=== PATIENT | female | born 1965 | race Two or more races ===

== ENCOUNTER 2023-01-06 13:08 | Emergency (ER) | payer OTHER ==
[~2023-01-06] VITALS: Ht 170.2 cm; Wt 79.6 kg
[2023-01-06 14:06] VITALS: BP 138/51; PULSE 78; RESP 17; TEMP 98.2; O2SAT 98
[2023-01-06] MEDS ORDERED: AZIT-43 PO (15:30)
[2023-01-06] MEDS ORDERED: PRED20TA2 PO (15:30)
[2023-01-06] MEDS ORDERED: methylPREDNISolone SOD SUCC 125 MG/2 ML VL IM ONE (15:30)
== END 2023-01-06 16:15 | disposition home or self-care (01) ==
LOC: ER 13:08
DX: J45.909 Unspecified asthma, uncomplicated (principal)
CPT/HCPCS: 71046; 96372; 99283; J2930

== ENCOUNTER 2023-01-12 09:54 | Emergency (ER) | payer OTHER ==
[~2023-01-12] VITALS: Ht 170.2 cm; Wt 79.6 kg
[~2023-01-12 09:54] MED LIST: AZIT-43 PO; PRED20TA2 PO
[2023-01-12 10:33] VITALS: BP 147/75; PULSE 85; RESP 18; O2SAT 96
[2023-01-12] MEDS ORDERED: IBUP-1456 PO (11:13)
[2023-01-12] MEDS ORDERED: METH-1182 PO (11:13)
[2023-01-12] MEDS ORDERED: ACETAMINOPHEN 500 MG TAB PO ONE (11:15)
[2023-01-12 11:17] VITALS: TEMP 98.3
== END 2023-01-12 11:19 | disposition home or self-care (01) ==
LOC: ER 09:54
DX: S16.1XXA Strain of muscle, fascia and tendon at neck level, initial encounter (principal); S46.912A Strain of unspecified muscle, fascia and tendon at shoulder and upper arm level, left arm, initial encounter; J45.909 Unspecified asthma, uncomplicated; V43.52XA Car driver injured in collision with other type car in traffic accident, initial encounter; Y93.89 Activity, other specified; Y92.410 Unspecified street and highway as the place of occurrence of the external cause; Y99.8 Other external cause status
CPT/HCPCS: 72040

== ENCOUNTER 2024-05-09 14:09 | Emergency (ER) | payer OTHER ==
[~2024-05-09] VITALS: Ht 167.6 cm; Wt 79.4 kg
[~2024-05-09 14:09] MED LIST changes: +IBUP-1456 PO; +METH-1182 PO
[2024-05-09] MEDS: ASPirin 81 mg TAB PO ONE (15:08)
[2024-05-09 15:11] LABS: Urine Bacteria None Seen /hpf (None Seen)
--- NOTE | 2024-05-09 15:14 | DVH ---
CHEST RADIOGRAPH Indication: cp Technique: Frontal and lateral view of the chest was obtained Comparison: XY CHEST TWO VIEWS ROUTINE on DOS: 01/06/23 FINDINGS: Lines and Tubes: None Lungs: Increased interstitial prominence. Pleura: No effusion. No pneumothorax. Cardiomediastinal contours: Unremarkable Bones: Unremarkable IMPRESSION: Possible mild viral pneumonia or pulmonary vascular congestion
[2024-05-09 15:23] LABS: Basophils # (auto) 0.1 10 ^3/uL (0-0.2); Basophils % (auto) 1.3 % (0.0-2.0); Eosinophils # (auto) 0.1 10 ^3/uL (0-0.8); Eosinophils % (auto) 2.7 % (0.0-7.0); Hematocrit 41.8 % (36.0-46.0); Lymphocytes # (auto) 1.5 10 ^3/uL (0.4-5.4); Lymphocytes % (auto) 28.8 % (10.0-50.0); Mean Corpuscular Hemoglobin 30.2 pg (28.0-32.0); Mean Corpuscular Hgb Conc. 33.4 g/dL (32.0-36.0); Mean Corpuscular Volume 90.4 fL (80.0-100.0); Monocytes # (auto) 0.5 10 ^3/uL (0-1.3); Monocytes % (auto) 9.1 % (0.0-12.0); Neutrophils % (auto) 58.1 % (37.0-80.0); Nucleated Red Blood Cells % 0.1 %; Platelet Count (auto) 256 10^3/uL (140-450); Red Blood Cells 4.62 10^6/uL (4.0-5.20); Red Cell Distribution Width 12.8 % (11.8-14.3); White Blood Cell 5.2 10^3/uL (4.4-10.8)
--- NOTE | 2024-05-09 15:26 | ED.PDOC ---
HPI Comments 58-year-old female with PMHx Asthma presents with a chief complaint of chest pain x 1 hour prior to arrival. Patient states that she felt a sudden onset of chest pain that was tightening in nature, radiating to her jaw while she was vacuuming and is intermittent in timing. She she immediately sat down, drink two water bottles and the chest pain subsided however then began to have some nausea. Patient reports that the chest pain lasted roughly 30 seconds. Patient denies any current chest pain at this time. Chief Complaint: Chest Pain Time Seen by MD: 14:39 Primary Care Provider: HERMINIO Barbour Notes: Medications, Allergies Allergies: Coded Allergies: Sulfa Antibiotics (Verified Allergy, Unknown, 05/09/24) Home Meds Active Scripts Methocarbamol (Methocarbamol) 750 Mg Tab, 750 MG PO BID, #20 TAB Prov:WALI FORBES 01/12/23 Ibuprofen (Ibuprofen) 800 Mg Tab, 1 TAB PO TID, #30 TAB Prov:WALI FORBES 01/12/23 Prednisone (Prednisone) 20 Mg Tab, 20 MG PO DAILY@BREAKFAST for 5 Days, #5 MG Prov:LIYAH YAÑEZ NP 01/06/23 Azithromycin (Azithromycin) 250 Mg Tab, 250 MG PO DAILY MDD 500 for 5 Days, #6 TAB 0 Refills 2 TABLETS ORALLY ON DAY ONE, THEN 1 TABLET ORALLY DAILY FOR 4 DAYS Prov:LIYAH YAÑEZ NP 01/06/23 Information Source: Patient Mode of Arrival: Ambulatory Severity: Moderate Timing: Hours Duration: Intermittent Prehospital treatment: None Location: Chest (L) Radiation: Jaw Quality: Tightness Onset: At Rest Cardiac Risk Factors: None PE Risk Factors: None History of: None Past Medical History PAST MEDICAL HISTORY: Asthma Surgical History: Denies all surgeries EDITING INTERNSHIP History: Denies all EDITING INTER[employer]HIP Hx Family History Family History: Reviewed,noncontributory to illness Social History Smoker: Non-Smoker Alcohol: Denies ETOH Use Drugs: Denies Drug Use Lives In: Home Constitutional: denies: chills, diaphoresis, fatigue, fever, malaise, sweats, weakness, others EENTM: denies: blurred vision, double vision, ear bleeding, ear discharge, ear drainage, ear pain, ear ringing, eye pain, eye redness, hearing loss, mouth pain, mouth swelling, nasal discharge, nose bleeding, nose congestion, nose pain, photophobia, tearing, throat pain, throat swelling, voice changes, others Respiratory: denies: cough, hemoptysis, orthopnea, SOB at rest, shortness of breath, SOB with excertion, stridor, wheezing, others Cardiovascular: reports: chest pain; denies: dizzy spells, diaphoresis, Dyspnea on exertion, edema, irregular heart beat, left arm pain, lightheadedness, palpitations, PND, syncope, others Gastrointestinal: denies: abdomen distended, abdominal pain, blood streaked bowels, constipated, diarrhea, dysphagia, difficulty swallowing, hematemesis, melena, nausea, poor appetite, poor fluid intake, rectal bleeding, rectal pain, vomiting, others Genitourinary: denies: abnormal vagina bleeding, burning, dyspareunia, dysuria, flank pain, frequency, hematuria, incontinence, pain, , vagina discharge, urgency, others Neurological: denies: dizziness, fainting, headache, left sided numbness, left sided weakness, numbness, paresthesia, pre-existing deficit, right sided numbness, right sided weakness, seizure, speech problems, tingling, tremors, wea kness, others Musculoskeletal: denies: back pain, gout, joint pain, joint swelling, muscle pain, muscle stiffness, neck pain, others Integumetry: denies: bruises, change in color, change in hair/nails, dryness, l aceration, lesions, lumps, rash, wounds, others Allergic/Immunocompromised: denies: Difficulty Healing, Frequent Infections, Hives, Itching, others Hematologic/Lymphatic: denies: anemia, blood clots, easy bleeding, easy bruising, swollen glands, others Endocrine: denies: excessive hunger, excessive sweating, excessive thirst, excessive urination, flushing, intolerance to cold, intolerance to heat, unexplained weight gain, unexplained weight loss, others Psychiatric: denies: anxiety, bipolar disorder, depression, hopeless, panic disorder, schizophrenia, sleepless, suicidal, others All Other Systems: Reviewed and Negative Physical Exam General Appearance: Mild Distress, Normal HEENT: Normal ENT Inspection, Pharynx Normal, TMs Normal Neck: Full Range of Motion, Non-Tender, Normal, Normal Inspection Respiratory: Chest Non-Tender, Lungs Clear, No Accessory Muscle Use, No Respiratory Distress, Normal Breath Sounds Cardiovascular: No Edema, No JVD, No Murmur, No Gallop, Normal Peripheral Pulses, Regular Rate/Rhythm Breast Exam: Deferred Gastrointestinal: No Organomegaly, Non Tender, No Pulsatile Mass, Normal Bowel Sounds, Soft Genitalia: Deferred Pelvic: Deferred Rectal: Deferred Extremities: No calf tenderness, Normal capillary refill, Normal inspection, Normal range of motion, Non-tender, No pedal edema Musculoskeletal : Apperance: Normal Neurologic: Alert, fleet manager II-XII nml as Tested, No Motor Deficits, Normal Affect, Normal Mood, No Sensory Deficits Cerebellar Function: Normal Reflexes: Normal Skin: Dry, Normal Color, Warm Lymphatic: No Adenopathy EKG EKG #1: Pulse Rate (adult): 63 [place]: Normal Cardiac Rhythm: NSR Block: RBBB Hypertrophy: None ST: Normal EKG #2: Pulse Rate (adult): 65 [place]: Normal Cardiac Rhythm: NSR Block: None Hypertrophy: None ST: Nonsp Was a procedure done? Was a procedure done?: No CP Differential Dx Differential Diagnosis: Angina, Pulmonary Embolus Differential Diagnosis: Angina, Chest Wall Pain, Costochondritis, Gastritis, Pericarditis X-Ray, Labs, Meds, VS Vital Signs Date Time Temp Pulse Resp B/P (MAP) Pulse Ox O2 Delivery O2 Flow Rate FiO2 05/09/24 15:26 65 05/09/24 15:15 98.1 67 18 138/59 (85) 96 98.1 05/09/24 15:15 67 18 96 Room Air 05/09/24 14:56 65 05/09/24 14:19 63 05/09/24 14:11 98.6 62 18 133/60 (84) 97 Lab Test 05/09/24 15:42 05/09/24 14:30 05/09/24 14:19 Range/Units Troponin I High Sensitivity < 3 L < 3 L </=34 ng/L Urine Color Light-yellow Yellow Urine Clarity Clear Clear Urine pH 6.0 5.0-9.0 Urine Specific [place] 1.012 1.001-1.035 Urine Protein Negative Negative Urine Ketones Negative Negative Urine Blood Negative Negative /uL Urine Nitrite Negative Negative Urine Bilirubin Negative Negative Urine Urobilinogen Normal Negative mg/dL Urine Leukocyte Esterase Negative Negative /uL Urine RBC 1 0 - 4 /hpf Urine Microscopic WBC < 1 0-5 /HPF Urine Squamous Epithelial Cells Few <5 /hpf Urine Bacteria None seen None Seen /hpf Urine Glucose Normal Normal mg/dL White Blood Count 5.2 4.4-10.8 10^3/uL Red Blood Count 4.62 4.0-5.20 10^6/uL Hemoglobin 14.0 12.2-16.2 g/dL Hematocrit 41.8 36.0-46.0 % Mean Corpuscular Volume 90.4 80.0-100.0 fL Mean Corpuscular Hemoglobin 30.2 28.0-32.0 pg Mean Corpuscular Hemoglobin Concent 33.4 32.0-36.0 g/dL Red Cell Distribution Width 12.8 11.8-14.3 % Platelet Count 256 140-450 10^3/uL Mean Platelet Volume 8.1 6.9-10.8 fL Neutrophils (%) (Auto) 58.1 37.0-80.0 % Lymphocytes (%) (Auto) 28.8 10.0-50.0 % Monocytes (%) (Auto) 9.1 0.0-12.0 % Eosinophils (%) (Auto) 2.7 0.0-7.0 % Basophils (%) (Auto) 1.3 0.0-2.0 % Neutrophils # (Auto) 3.0 1.6-8.6 10 ^3/uL Lymphocytes # (Auto) 1.5 0.4-5.4 10 ^3/uL Monocytes # (Auto) 0.5 0-1.3 10 ^3/uL Eosinophils # (Auto) 0.1 0-0.8 10 ^3/uL Basophils # (Auto) 0.1 0-0.2 10 ^3/uL Nucleated Red Blood Cells 0.1 % Sodium Level 138 136-145 mmol/L Potassium Level 4.1 3.5-5.1 mmol/L Chloride Level 105 98-107 mmol/L Carbon Dioxide Level 23 20-31 mmol/L Anion Gap 10 5-15 Blood Urea Nitrogen 14 9-23 mg/dL Creatinine 0.73 0.550-1.02 mg/dL Glomerular Filtration Rate Calc 95 >90 mL/min BUN/Creatinine Ratio 19.2 10.0-20.0 Serum Glucose 100 74-106 mg/dL Calcium Level 10.2 8.7-10.4 mg/dL Current Medications Medications (Trade) Dose Ordered Sig/Glenis Route Start Time Stop Time Status Last Admin Aspirin 162 mg ONCE ONCE PO 05/09/24 14:45 05/09/24 14:46 DC 05/09/24 15:08 PATIENT: ASL BRAN (AACCT: [id number] UNIT: [id number] : 1965 LOC: ER ROOM / BED: / AGE / SEX: 58 / F ADM STATUS: REG ER SERVICE [id number] ORDERING PHYSICIAN: ROHITH SCHILLING MD PROCEDURE(s): CXR2 - CHEST TWO VIEWS ROUTINE REASON: cp ORDER NUMBER(s): [id number], ACCESSION NUMBER(s): [id number] CHEST RADIOGRAPH Indication: cp Technique: Frontal and lateral view of the chest was obtained Comparison: XY CHEST TWO VIEWS ROUTINE on DOS: 01/06/23 FINDINGS: Lines and Tubes: None Lungs: Increased interstitial prominence. Pleura: No effusion. No pneumothorax. Cardiomediastinal contours: Unremarkable Bones: Unremarkable IMPRESSION: Possible mild viral pneumonia or pulmonary vascular congestion ATED BY: GEORGE IRWIN MD DICTATED DATE/TIME: 05/09/24 150 SIGNED BY: GEORGE IRWIN MD SIGNED DATE/TIME: 05/09/24 1508 58-year-old female presents here with chest discomfort.. Patient's she was vacuuming when she began to have some squeezing like chest discomfort with radiation to her left jaw. Pain improved upon sitting. At this time EKG demonstrates evidence of right bundle branch block but is otherwise unremarkable. Troponin is negative x2. Patient is currently not having any chest pain. Blood work including a CBC and a BMP are largely unremarkable. She has been given aspirin 162 mg in the ER. Heart score is 3. I did offer her admission however the patient declined stating she prefers to follow up with her PCP Dr. Garcia. Chest x-ray demonstrates possible mild viral pneumonia or pulmonary vascular congestion. She denies being currently ill. I advised her if she has chest pain again she is to return back to the ER. Advised to follow up with Dr. Garcia in 2 days and return to the ER if symptoms worsen or persist. Time of 1ST Reevaluation: 15:09 Reevaluation 1ST: Unchanged Patient Education/Counseling: Diagnosis, Treatment, Prognosis Family Education/Counseling: Diagnosis, Treatment, Prognosis Heart Score Heart Score: Heart Score Response (Comments) Value History Moderate Suspicious 1 EKG Normal 0 Age 45-64 1 Risk Factors 1 or 2 risk factors 1 Troponin Normal limit 0 Total 3 Departure 1 Departure Time of Disposition: 15:09 Impression: Primary Impression: Chest pain Qualified Codes: R07.9 - Chest pain, unspecified Disposition: HOME / SELF CARE / HOMELESS Condition: Fair Additional Instructions: Follow up with the primary care physician in 2 days. If you are unable to be seen in a timely manner please return back to the ER for evaluation. When you speak to your primary care physician please let them know that you were seen in the ER for chest pain. You will require additional cardiac testing for further evaluation of possible acute coronary syndrome. If you change your mind and preferred to be admitted, please return back to the ER. Discharged With: Self Critical Care Note Critical Care Time?: No Stability Stability form required: No I personally scribed for ROHITH SCHILLING MD ([email or web address]) on 05/09/24 at 15:26. Electronically submitted by Arun Calvillo ([email or web address]). I personally scribed for ROHITH SCHILLING MD ([email or web address]) on 05/09/24 at 17:00. Electronically submitted by Arun Calvillo ([email or web address]). ROHITH SCHILLING MD May 09, 2024 15:26
[2024-05-09 15:29] LABS: Chloride 105 mmol/L (98-107); Potassium 4.1 mmol/L (3.5-5.1); Sodium 138 mmol/L (136-145)
[2024-05-09 15:30] LABS: Anion Gap 10 (5-15); Calcium 10.2 mg/dL (8.7-10.4); Carbon Dioxide 23 mmol/L (20-31)
[2024-05-09 15:32] LABS: Urine Blood Negative /uL (Negative); Urine Clarity Clear (Clear); Urine Color Light-Yellow (Yellow); Urine Protein, UAD Negative (Negative); Urine Specific Gravity 1.012 (1.001-1.035); Urine Squamous Epithelial Cell FEW /hpf (<5); Urine Urobilinogen Normal (Negative); Urine WBC < 1 /HPF (0-5)
[2024-05-09 15:35] LABS: BUN/Creatinine Ratio 19.2 (10.0-20.0); Blood Urea Nitrogen 14 mg/dL (9-23); Glucose 100 mg/dL (74-106)
--- NOTE | 2024-05-09 16:34 | ECG ---
[facility] Test Date: 2024-05-09 Test Time: 14:56:21 Pat Name: SAL BRAN Department: ER Room: Gender: F Ssn/Ssbn Assistant Navigator: MARY : 1965 Requested By: JEFERSON GARCIA Order Number: [id number] Reading MD: Feng Singh Measurements Intervals [place] Rate: 65 P: 41 [place]: 145 QRS: 49 QRSD: 120 T: 62 QT: 440 QTc: 458 Interpretive Statements Sinus rhythm IVCD, consider atypical RBBB Electronically Signed On 05-10-2024 18:47:33 PST by Feng Singh Please click the below link to view image of tracing.
[2024-05-09 17:38] VITALS: BP 133/59; PULSE 59; RESP 17; TEMP 98.9; O2SAT 99
--- NOTE | 2024-05-09 18:17 | ECG ---
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
--- NOTE | 2024-05-11 16:18 | ECG ---
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
== END 2024-05-09 17:45 | disposition home or self-care (01) ==
LOC: ER 14:09
DX: R07.89 Other chest pain (principal); R68.84 Jaw pain; J45.909 Unspecified asthma, uncomplicated; Z79.899 Other long term (current) drug therapy; Z88.2 Allergy status to sulfonamides
CPT/HCPCS: 36415; 71046; 80048; 81001; 84484; 85025; 93005